=== PATIENT | female | born 1940 | race Asian ===

== ENCOUNTER 2016-09-30 12:51 | Emergency (ER) | payer OTHER ==
[~2016-09-30] VITALS: Ht 172.7 cm; Wt 122.5 kg
[~2016-09-30 12:51] MED LIST: ALLOPURINOL100 MG PO; AMLODIPINE BESY10 MG PO; AMLODIPINE5 M1 PO; ATORVASTATIN CA40 MG PO; Allopurinol PO; Aspirin PO; COLCHICINE0.6 M1 PO; COLCHICINE0.6 M2 PO; FUROSEMIDE40 M1 PO; Ferrous Sulfate PO; Insulin Aspart, Recombinant SUBQ; LORATADINE10 M2 PO; LOSARTAN POTASS50 MG PO; METOPROLOL TART25 MG PO; Metoprolol Tartrate PO; Simvastatin PO; TOPCARE ASPIRIN81 MG PO
[2016-09-30 12:54] VITALS: BP 118/47
--- NOTE | 2016-09-30 12:58 | NUR ---
Patient ambulated to bed 5 with family. RN evaluating patient at bedside.
[2016-09-30] MEDS ORDERED: ALBUTEROL SULFATE/IPRATROPIU 3 ML SOL IH ONE (13:00)
--- NOTE | 2016-09-30 13:01 | NUR ---
Dr. Millan evaluating patient at bedside.
--- NOTE | 2016-09-30 13:05 | NUR ---
PT PRESENTS TO ER W/C/O SOB SINCE LAST NOC. HX ASTHMA, DM, HTN, GOUT; DENIES N/V/D; SKIN IS PINK/WARM/DRY; AAOX4 WITH EVEN AND STEADY GAIT; LUNGS CLEAR BL; HR EVEN AND REGULAR; PT DENIES ANY FEVER, CP OR COUGH AT THIS TIME; PATIENT STATES PAIN OF 0/10 AT THIS TIME; VSS; PATIENT POSITIONED FOR COMFORT; HOB ELEVATED; BEDRAILS UP X2; BED DOWN. ER MD MADE AWARE OF PT STATUS.
[2016-09-30] MEDS ORDERED: SODIUM CHLORIDE FLUSH 10 ML SYR IVF ONE (13:10)
[2016-09-30] MEDS ORDERED: NITROGLYCERIN 2% 1 GM PKT TP ONE (13:10)
[2016-09-30 14:24] VITALS: BP 119/79
--- NOTE | 2016-09-30 14:24 | NUR ---
Patient discharged with v/s stable. Written and verbal after care instructions given and explained. Patient alert, oriented and verbalized understanding of instructions. Wheel Chair Assisted with to car. All questions addressed prior to discharge. ID band removed. Patient advised to follow up with PMD. Rx of PREDNISON, ALBUTEROL AND ATROVENT INHALER given. Patient educated on indication of medication including possible reaction and side effects. Opportunity to ask questions provided and answered.
== END 2016-09-30 14:24 | disposition home or self-care (01) ==
LOC: MED 12:51
DX: J45.901 Unspecified asthma with (acute) exacerbation (principal); I10 Essential (primary) hypertension; I25.2 Old myocardial infarction; E11.9 Type 2 diabetes mellitus without complications; Z79.4 Long term (current) use of insulin; Z79.82 Long term (current) use of aspirin
CPT/HCPCS: 36415; 71010; 80053; 83880; 84484; 85025; 85610; 85730; 93005; 94640; 99285; J7620; Q0092

== ENCOUNTER 2016-11-24 15:19 | Inpatient (IN) | payer OTHER ==
[~2016-11-24] VITALS: Ht 172.7 cm; Wt 119.7 kg
[2016-11-24 15:56] VITALS: BP 128/53
[2016-11-24] MEDS ORDERED: ASPIRIN 325 MG TAB PO ONE (16:05)
--- NOTE | 2016-11-24 16:27 | NUR ---
76/F PRESENT TO ER C/O COUGH SOB WHEEZING X 2 WKS-----ANTERIOR CHEST WALL PAIN WITH COUGHING PT STATES SHE HAS HX----ASTHMA, GOUT, ARTHRITIS, HTN, DM, CT 2012, CAD, STENTS PLACED. PAIN 8/10 ACHING NON-RADIATING UPON COUGHING. ERMD NOTIFIED OF PATIENT STATUS.
--- NOTE | 2016-11-24 16:30 | NUR ---
Patient being evaluated by physician at bedside.
[2016-11-24] MEDS ORDERED: MORPHINE SULFATE 2 MG/ML SYR IVP PRN (17:40)
[2016-11-24] MEDS ORDERED: HYDROcodone/APAP 7.5/325 MG 1 TAB PO PRN (17:40)
[2016-11-24] MEDS ORDERED: DEXTROSE 50% 50 ML SYR IVP PRN (17:40)
[2016-11-24] MEDS ORDERED: ONDANSETRON 4 MG/2 ML VIAL IVP PRN (17:40)
[2016-11-24] MEDS ORDERED: ACETAMINOPHEN 325 MG TAB PO PRN (17:40)
[2016-11-24] MEDS ORDERED: NITROGLYCERIN 0.4 MG TAB SL PRN (17:45)
[2016-11-24] MEDS ORDERED: ALBUTEROL SULFATE/IPRATROPIU 3 ML SOL IH PRN (17:50)
--- NOTE | 2016-11-24 18:18 | NUR ---
Patient will be admitted to care of DR COLLINS. Admited to TELE. Will go to room 110B. Belongings list completed. Report to ABELARDO VERGARA.
--- NOTE | 2016-11-24 18:25 | NUR ---
Patient will be admitted to care of DR. COLLINS. Admited to TELEMETRY. Will go to room 110B. Belongings list completed. Report to ABELARDO VERGARA.
[2016-11-24 18:30] VITALS: BP 154/62
--- NOTE | 2016-11-24 18:30 | NUR ---
RECEIVED PT FROM ER VIA [facility]. PT IS AAOX4 AND AMB TO BED W/O WALKER. PT HAS WALKER AT BEDSIDE. PT DENIES PAIN, SOB, AND CHEST PAIN. PT IS SHOWING NO S/S OF DISTRESS NOTED WITH 2L O2 NC. PT SKIN IS INTACT. PT BP IS 154/62, HR IS 93, RESPIRATIONS 24, TEMPERATURE 97.2. PT IS AWARE SHE NEEDS TO CALL FAMILY TO BRING ALL MEDICATIONS FROM HOME. PT BED IS IN HIGH FOWLERS POSITION, LOWERED, WITH CALL LIGHT WITHIN REACH. PT STATES SHE NEEDS HEAD OF BED UP BC SHE HAS TROUBLE BREATHING IF THE HOB IS TOO LOW.
--- NOTE | 2016-11-24 19:25 | NUR ---
RECEIVED REPORT FROM JAI ZHOU AT BEDSIDE. Admitted from [facility] with chief complaint of DIFFICULTY BREATHING & SHORTNESS OF BREATH. A 76 y/o, Female, Appropriate. ALERT AWAKE ORIENTED X4. INITIAL ASSESSMENT DONE. NO S/S OF RESPIRATORY DISTRESS OR SOB NOTED. ON O2 @ 2L/MIN VIA NASAL CANULA. NO C/O PAIN OR ANY DISCOMFORT AT THIS TIME. SKIN IS INTACT CLEAN DRY AND WARM TO TOUCH. PLAN OF CARE REVIEWED TO PT AND FAMILY AT BEDSIDE AND VERBALIZED UNDERSTANDING. Oriented to call light, bed, phone,television, bathroom, smoking policy, visiting hours, procedures, ID bracelet on. Belongings list checked. CALL LIGHT WITHIN REACH. WILL CONTINUE TO MONITOR.
--- NOTE | 2016-11-24 19:25 | NUR ---
GAVE PT REPORT TO NIGHT NURSE AT BEDSIDE. PT ENDORSED IN STABLE CONDITION.
[2016-11-24] MEDS: NACL 0.9% 1,000 ML IV SCH (19:29)
--- NOTE | 2016-11-24 20:00 | NUR ---
PT REFUSED TO HAVE SCD'S ON DESPITE EXPLAINING THE RISKS AND BENEFITS OF IT. PT STATES THAT IT CAN MAKE HIM UNCOMFORTABLE. PT IS AMBULATORY WITHOUT ASSIST. SCD'S AT BEDSIDE JUST INCASE PT WILL CHANGE HER MIND. WILL CONTINUE TO MONITOR.
[2016-11-24] MEDS: ALBUTEROL SULFATE/IPRATROPIU 3 ML SOL IH SCH (20:01)
[2016-11-24] MEDS: ATORVASTATIN 20 MG TAB PO SCH (20:17)
[2016-11-24] MEDS: DOCUSATE SODIUM 100 MG GELCAP PO SCH (20:17)
[2016-11-24] MEDS: METOPROLOL 25 MG TAB PO SCH (20:18)
[2016-11-24] MEDS ORDERED: NON-FORMULARY ITEM (Atorvastatin Calcium 40 MG) PO SCH (21:00)
[2016-11-24] MEDS: BLOOD GLUCOSE MONITORING 1 DEV DEV FS SCH (21:07)
[2016-11-24] MEDS: INSULIN LISPRO SLIDING SCALE 100 UNITS/ML VIAL SUBQ PRN (21:08)
[2016-11-25] VITALS: BP 123/52
--- NOTE | 2016-11-25 00:30 | NUR ---
PT IS SLEEPING RIGHT NOW BUT EASILY AROUSABLE. NO S/S OF ANY DISCOMFORT AT THIS TIME. ALL NEEDS ARE ATTENDED. CALL LIGHT WITHIN REACH. WILL CONTINUE TO MONITOR.
[2016-11-25 04:00] VITALS: BP 119/51
--- NOTE | 2016-11-25 05:20 | NUR ---
AM CARE RENDERED. BED LINEN CHANGED. INSTRUCTED PT TO REPOSITION. KEPT CLEAN AND DRY. CALL LIGHT WITHIN REACH. WILL CONTINUE TO MONITOR.
[2016-11-25] MEDS: BLOOD GLUCOSE MONITORING 1 DEV DEV FS SCH ×4 (06:36→20:40)
[2016-11-25] MEDS: INSULIN LISPRO SLIDING SCALE 100 UNITS/ML VIAL SUBQ PRN ×3 (06:37→20:42)
[2016-11-25] MEDS: ALBUTEROL SULFATE/IPRATROPIU 3 ML SOL IH SCH ×3 (06:50→19:28)
--- NOTE | 2016-11-25 07:15 | NUR ---
PT HAS NO S/S OF ANY DISCOMFORT. PLAN OF CARE ENDORSED TO ANDREW ZHOU AT BEDSIDE FOR CONTINUITY OF CARE.
--- NOTE | 2016-11-25 07:16 | NUR ---
RECEIVED REPORT FROM CHILD CARE ATTENDANT SCHOOL NURSE AT BEDSIDE. INTRODUCED OURSELVES AND UPDATED THE BOARD. PT IS ALERT AWAKE AND ORIENTED. PT IS ON NC 3L, O2 SAT 98%. PT HAS IV ON R HAND 22 G RUNNING NS 50ML/HR. PT DENIES CHEST PAIN AT THIS TIME. PT STATED AFTER BREATHING TREATMENT HER BREATHING IS BETTER. CALL LIGHT WITHIN REACH. WILL CONTINUE TO MONITOR.
[2016-11-25 08:00] VITALS: BP 142/54
[2016-11-25] MEDS ORDERED: FERROUS SULFATE 325 MG PO SCH (08:00)
--- NOTE | 2016-11-25 08:24 | NUR ---
PATIENT HAS BEEN SCREENED AND CATEGORIZED HIGH NUTRITION RISK. PATIENT WILL BE SEEN WITHIN 1-2 DAYS OF ADMISSION. 11/25/16-11/26/[address]
--- NOTE | 2016-11-25 08:40 | NUR ---
ADMINISTERED MORNING MEDS. PT TOOK AND TOLERATED WELL. WILL CONTINUE TO MONITOR.
[2016-11-25] MEDS: METOPROLOL 25 MG TAB PO SCH ×2 (08:46→20:36)
[2016-11-25] MEDS: FERROUS SULFATE 325 MG TABEC PO SCH ×2 (08:46→17:14)
[2016-11-25] MEDS: PANTOPRAZOLE 40 MG INJ VIAL IVP SCH (08:46)
[2016-11-25] MEDS: ALLOPURINOL 100 MG TAB PO SCH (08:46)
[2016-11-25] MEDS: COLCHICINE 0.6 MG TAB PO SCH (08:47)
[2016-11-25] MEDS: ECOTRIN 81 MG TABEC PO SCH (08:47)
[2016-11-25] MEDS: LORATADINE 10 MG TAB PO SCH (08:47)
[2016-11-25] MEDS: DOCUSATE SODIUM 100 MG GELCAP PO SCH ×2 (08:48→20:36)
[2016-11-25] MEDS: amLODIPine 5 MG TAB PO SCH (08:48)
[2016-11-25] MEDS: LOSARTAN 50 MG TAB PO SCH (08:48)
[2016-11-25] MEDS ORDERED: NON-FORMULARY ITEM (Amlodipine Besylate 1 TAB) PO SCH (09:00)
[2016-11-25] MEDS ORDERED: NON-FORMULARY ITEM (Loratadine 10 MG) PO SCH (09:00)
[2016-11-25] MEDS ORDERED: COLCHICINE 0.3 MG PO SCH (09:00)
[2016-11-25] MEDS ORDERED: FUROSEMIDE 40 MG TAB PO SCH (09:00)
[2016-11-25] MEDS ORDERED: [UNRECOGNIZED DRUG - OTHER] PO SCH (09:00)
--- NOTE | 2016-11-25 10:00 | NUR ---
PT RESTING IN BED. NO COMPLAINTS AT THIS TIME. CALL LIGHT WITHIN REACH. WILL CONTINUE TO MONITOR.
[2016-11-25 12:00] VITALS: BP 137/67
--- NOTE | 2016-11-25 12:18 | NUR ---
ABG DRAWN ON RR WITHOUT INCIDENT AND AT 1230 RESULTS WERE GIVEN TO DR. CAVANAUGH AND PT WAS PLACED BACK ON 2LNC
[2016-11-25] MEDS ORDERED: SODIUM POLYSTYRENE 15 GM/60 ML UDBTL PO SCH (12:33)
[2016-11-25] MEDS ORDERED: PIPER/TAZO 2.25GM/D5W PREMIX 50 ML IV SCH (13:11)
--- NOTE | 2016-11-25 13:15 | NUR ---
DECREASED FIO2 TO 2L SPO2 99
[2016-11-25] MEDS: NACL 0.9% 1,000 ML IV SCH (13:26)
--- NOTE | 2016-11-25 15:01 | NUR ---
11/25/16 RD INITIAL ASSESSMENT COMPLETED PLEASE REFER TO NUTRITION ASSESSMENT UNDER CARE ACTIVITY FOR ESTIMATED NUTRITIONAL NEEDS. RD RECOMMENDATIONS: 1. RECOMMEND ADDING CARDIAC DIET ONTO CCHO 60 GM D/T PT WITH PMH OF CARDIAC DISORDERS AND DX OF CHF. --NOTE PT CURRENT PO INTAKE IS MEETING 100% OF ESTIMATED KCAL AND PROTEIN NEEDS WITH AN AVG PO INTAKE OF 100%. --ADEQUATE 2. RD LEFT DM DIET EDUCATION HANDOUT NEAR PT BEDSIDE, RD WILL FOLLOW UP WITH DIET EDUCATION ON NEXT VISIT. 3. RD WILL F/U 3-5 DAYS; MODERATE RISK. ALTON ALEXANDER, EDMUND
[2016-11-25 16:00] VITALS: BP 128/50
--- NOTE | 2016-11-25 16:50 | NUR ---
FAMILY VISITING AT BEDSIDE. PT IN STABLE CONDITION. CALL LIGHT WITHIN REACH. WILL CONTINUE TO MONITOR.
--- NOTE | 2016-11-25 18:20 | NUR ---
DR. FUENTES EXAMINED PT AND ORDERED ABG STAT. PT IS ON NC 2L O2 SAT 96%, RR 32.
--- NOTE | 2016-11-25 18:55 | NUR ---
PAGED RESIDENT DOCTOR AND DR. GREGORY REGARDING ABG STAT RESULT.
--- NOTE | 2016-11-25 18:57 | NUR ---
SPOKE TO DR. GREGORY REGARDING PT'S STAT ABG RESULTS. GAVE NO NEW ORDER.
--- NOTE | 2016-11-25 19:12 | NUR ---
PAGED RESIDENT DOCTOR REGARDING BIPAP SETTING FiO2.
--- NOTE | 2016-11-25 19:30 | NUR ---
GAVE REPORT TO CHARGE NURSE OF CONSUMER SALES REPRESENTATIVE. PT IN STABLE CONDITION. RT PUT PT ON BIPAP.
[2016-11-25 20:00] VITALS: BP 145/54
--- NOTE | 2016-11-25 20:05 | NUR ---
RECEIVED FROM CHARGE NURSE REPORT OF PT, SLEEPING AT THIS TIME. BIPAP IN PLACE. WAKES UP EASILY WHEN TOUCHED. TELEMETRY MONITORING. CALL LIGHT WITH IN REACH. CARE PLANS FOR THE NIGHT DISCUSSED WITH HER.
[2016-11-25] MEDS: PIPER/TAZO 2.25GM/D5W PREMIX 50 ML IV SCH (20:35)
[2016-11-25] MEDS: methylPREDNISolone SS 125 MG/2 ML VIAL IVP SCH (20:35)
[2016-11-25] MEDS: ATORVASTATIN 20 MG TAB PO SCH (20:36)
--- NOTE | 2016-11-25 21:33 | NUR ---
SLEEPING WITH BIPAP IN PLACE. NO SOB. NO RESTLESSNESS NOTED. CALL LIGHT WITH IN REACH.ABLE TO USE CALL LIGHT FOR HELP. ORIENTED X 4. TELEMETRY MONITORING.
--- NOTE | 2016-11-26 00:13 | NUR ---
SLEEPING AT THIS TIME. CALL LIGHT WITH IN REACH.
[2016-11-26 00:52] VITALS: BP 126/58
--- NOTE | 2016-11-26 03:47 | NUR ---
ON BIPAP AT 32 % FI02. SLEEPING. NO RESTLESSNESS. CALL LIGHT AT BEDSIDE. TELEMETRY MONITORING.
[2016-11-26] MEDS: PIPER/TAZO 2.25GM/D5W PREMIX 50 ML IV SCH ×3 (04:28→20:31)
[2016-11-26] MEDS: methylPREDNISolone SS 125 MG/2 ML VIAL IVP SCH ×2 (04:28→13:50)
[2016-11-26] MEDS: NACL 0.9% 1,000 ML IV SCH (04:38)
[2016-11-26 05:05] VITALS: BP 135/65
--- NOTE | 2016-11-26 05:38 | NUR ---
STILL ON BIPAP AND SLEEPING STILL UP TO THIS TIME. USES CALL LIGHT FOR ANY HELP SHE NEEDS. A/O X 4. ROM X 4. STANDBY ASSIST . NO PAIN COMPLAINT THIS SHIFT.
[2016-11-26] MEDS: BLOOD GLUCOSE MONITORING 1 DEV DEV FS SCH ×4 (06:17→20:31)
[2016-11-26] MEDS: INSULIN LISPRO SLIDING SCALE 100 UNITS/ML VIAL SUBQ PRN ×2 (06:18→14:15)
[2016-11-26] MEDS: ALBUTEROL SULFATE/IPRATROPIU 3 ML SOL IH SCH ×3 (06:52→18:52)
--- NOTE | 2016-11-26 07:23 | NUR ---
RECEIVED PT REPORT FROM CARE TAKER NURSE AT BEDSIDE. INTRODUCED OURSELVES AND UPDATED THE BOARD. PT IS ALERT AWAKE AND ORIENTED. PT STATED SHE IS FEELING MUCH BETTER THAN YESTERDAY. PT IS ON NC 3L O2 SAT 95%. PT HAS IV ON R HAND 22G RUNNING NS@50ML/HR. CALL LIGHT WITHIN REACH. WILL CONTINUE TO MONITOR.
[2016-11-26 08:00] VITALS: BP 137/59
[2016-11-26] MEDS: PANTOPRAZOLE 40 MG INJ VIAL IVP SCH (08:33)
[2016-11-26] MEDS: FERROUS SULFATE 325 MG TABEC PO SCH ×2 (08:34→17:11)
[2016-11-26] MEDS: ECOTRIN 81 MG TABEC PO SCH (08:34)
[2016-11-26] MEDS: DOCUSATE SODIUM 100 MG GELCAP PO SCH ×2 (08:34→20:32)
[2016-11-26] MEDS: LOSARTAN 50 MG TAB PO SCH (08:34)
[2016-11-26] MEDS: LORATADINE 10 MG TAB PO SCH (08:34)
[2016-11-26] MEDS: METOPROLOL 25 MG TAB PO SCH ×2 (08:35→20:31)
[2016-11-26] MEDS: amLODIPine 5 MG TAB PO SCH (08:35)
[2016-11-26] MEDS: FUROSEMIDE 40 MG/4 ML VIAL IVP SCH (08:35)
[2016-11-26] MEDS: COLCHICINE 0.6 MG TAB PO SCH (08:35)
[2016-11-26] MEDS: ALLOPURINOL 100 MG TAB PO SCH (08:36)
--- NOTE | 2016-11-26 11:05 | NUR ---
ABG DRAWN ON RR WITHOUT INCIDENT AND AT 1115 ABG RESULTS GIVEN TO DR. CAVANAUGH WITH NO CHANGES MADE
[2016-11-26 12:00] VITALS: BP 141/51
--- NOTE | 2016-11-26 13:30 | NUR ---
LAB CALLED REGARDING CRITICAL RESULT OF BS, BUN AND CREATININE. WILL REPORT TO
--- NOTE | 2016-11-26 13:32 | NUR ---
SPOKE TO REGARDING PT'S CRITICAL VALUE. WANTED NURSE TO ASK PT WHAT HOME MEDS SHE TAKES FOR DM. WILL ASK.
--- NOTE | 2016-11-26 13:34 | NUR ---
REPORTED TO DR HERRMANN'S HOME MEDS.
[2016-11-26] MEDS ORDERED: INSULIN HUMAN REGULAR 100 UNITS/ML 10 ML VIAL SUBQ SCH (15:30)
[2016-11-26] MEDS ORDERED: INSULIN LISPRO 100 UNITS/ML VIAL SUBQ SCH (15:35)
--- NOTE | 2016-11-26 15:45 | NUR ---
ADMINISTERED HUMALOG INSULIN 10 UNITS ORDERED BY FOR BS OF 521. PT TOLERATED WELL. WILL RECHECK BS.
[2016-11-26 16:00] VITALS: BP 136/56
[2016-11-26] MEDS ORDERED: INSULIN HUMAN NPH 100 UNITS/ML VIAL SUBQ SCH ×3 (16:00→21:00)
--- NOTE | 2016-11-26 16:06 | NUR ---
NOVOLIN N 10 UNITS ADMINISTERED FOR BS 519 ORDERED. PT TOLERATED WELL. WILL RECHECK BS.
[2016-11-26] MEDS: CALCIUM ACETATE 667 MG TAB PO SCH (17:10)
--- NOTE | 2016-11-26 17:10 | NUR ---
NOVOLIN N 10 UNITS ADMINISTERED FOR BS 470 ORDERED.
--- NOTE | 2016-11-26 17:48 | NUR ---
RECHECK BS, IT WAS 458. REPORTED TO
--- NOTE | 2016-11-26 18:00 | NUR ---
PT SAT ON EDGE OF BED AND ATE DINNER. TOLERATED WELL. VS STABLE. WILL CONTINUE TO MONITOR.
--- NOTE | 2016-11-26 18:30 | NUR ---
PT STATED GLASSES ARE MISSING. CHECKED IN BETWEEN SHEETS, UNDER THE BED, IN THE TRASH CAN, ALL OVER ROOM, AND HER DINNER TRAY IN KITCHEN. NOT FOUND.
--- NOTE | 2016-11-26 19:23 | NUR ---
ENDORSED PT TO THE PRODUCTION MANUFACTURING WORKER NURSE AT BEDSIDE FOR CONTINUITY OF CARE. PT IS IN STABLE CONDITION.
--- NOTE | 2016-11-26 19:24 | NUR ---
RECEIVED REPORT FROM DAY SHIFT NURSE. PT IS AAOX4, TELE MONITOR, DENIES PAIN. HAS NO S/S OF RESPIRATORY DISTRESS/DISCOMFORT NOTED. IV SITE IS PATENT AND INTACT. SKIN IS INTACT. PLAN OF CARE DISCUSSED, VERBALIZED UNDERSTANDING. SAFETY MEASURES CHECKED, CALL LIGHT WITHIN REACH. WILL CONTINUE TO MONITOR.
[2016-11-26 20:00] VITALS: BP 126/54
[2016-11-26] MEDS: ATORVASTATIN 20 MG TAB PO SCH (20:32)
--- NOTE | 2016-11-26 20:35 | NUR ---
DUE MEDS GIVEN, PROVIDED DRUG INFO EXPLANATION, BENEFITS AND S/E, VERBALIZED UNDERSTANDING. PT TOLERATED MEDS WELL. BSL CHECKED, BSL= 423, WILL NOTIFY
--- NOTE | 2016-11-26 20:55 | NUR ---
PAGED MD TO REPORT BLOOD SUGAR LEVEL. WAITING FOR CALL BACK.
--- NOTE | 2016-11-26 20:58 | NUR ---
SPOKE DR SAM VIA PHONE, REPORTED BSL OF 423, MD STATED THAT OK NOT TO GIVE HUMALOG COVERAGE DUE TO NOVOLIN WAS GIVEN AT DAY SHIFT. WILL CONTINUE TO MONITOR.
[2016-11-26] MEDS ORDERED: INSULIN NPH HUM/REG INSULIN HM 100 UNIT/ML 10 ML VIAL SQ SCH (21:00)
[2016-11-27] VITALS: BP 111/45
--- NOTE | 2016-11-27 | NUR ---
V/S CHECKED AND STABLE. PT ON BIPAP HAS NO S/S OF RESPIRATORY DISTRESS/DISCOMFORT NOTED. WILL CONTINUE TO MONITOR.
--- NOTE | 2016-11-27 00:05 | NUR ---
PT IN BIPAP, CONNECT CONTINUE PULSE OX. PT IS LINDA. WELL BIPAP.
[2016-11-27] MEDS: NACL 0.9% 1,000 ML IV SCH ×2 (00:52→08:03)
--- NOTE | 2016-11-27 02:43 | NUR ---
PT ON BIPAP, EYES CLOSED, BREATHING EVEN AND UNLABORED, RESTING QUIETLY, HAS NO S/S OF RESPIRATORY DISTRESS/DISCOMFORT.
[2016-11-27 04:00] VITALS: BP 102/40
--- NOTE | 2016-11-27 04:00 | NUR ---
V/S CHECKED AND STABLE, DENIES PAIN. PT ON BIPAP. NO S/S OF RESPIRATORY DISTRESS/DISCOMFORT NOTED.
[2016-11-27] MEDS: PIPER/TAZO 2.25GM/D5W PREMIX 50 ML IV SCH ×2 (04:58→12:36)
[2016-11-27] MEDS: INSULIN LISPRO SLIDING SCALE 100 UNITS/ML VIAL SUBQ PRN ×2 (05:39→11:27)
--- NOTE | 2016-11-27 06:15 | NUR ---
PT AMBULATED TO THE RESTROOM, NO DISTRESS NOTED. REMINDED TO USE CALL LIGHT, VERBALIZED UNDERSTANDING.
[2016-11-27] MEDS ORDERED: INSULIN HUMAN NPH 100 UNITS/ML VIAL SUBQ SCH (06:30)
[2016-11-27] MEDS ORDERED: INSULIN NPH HUM/REG INSULIN HM 100 UNIT/ML 10 ML VIAL SQ SCH (06:30)
--- NOTE | 2016-11-27 06:50 | NUR ---
ACCIDENTALLY PULLED HER IV, CANNULA INTACT, SECURED WITH TAPE. WILL INSERT A NEW IV.
[2016-11-27] MEDS: BLOOD GLUCOSE MONITORING 1 DEV DEV FS SCH ×2 (06:52→11:24)
[2016-11-27] MEDS: ALBUTEROL SULFATE/IPRATROPIU 3 ML SOL IH SCH ×2 (07:10→13:32)
--- NOTE | 2016-11-27 07:19 | NUR ---
RECEIVED CALL FROM LAB BUN 70 AND TRENDING UP.
--- NOTE | 2016-11-27 07:20 | NUR ---
ENDORSED TO DAY SHIFT NURSE. PT IN STABLE CONDITION.
--- NOTE | 2016-11-27 07:21 | NUR ---
PT AWAKE AND ALERT, NO SIGNS OF ACUTE DISTRESS, BREATHING EVEN AND UNLABORED BILATERALLY, TELE MONITOR IN PLACE, BOWEL SOUNDS ACTIVE IN ALL 4 QUADRANTS, SKIN INTACT, AMBULATORY WITH BRP, CONTINENT TO BOWEL AND BLADDER, PT DENIES PAIN AT THIS TIME, NO IV ACCESS AT THIS TIME IV WAS PULLED OUT ON ACCIDENT BY PATIENT, BED IN LOW POSITION WITH BILATERAL HALF SIDE RAILS UP, CALL LIGHT WITHIN REACH. ORIENTED TO UNIT AND HOSPITAL, PT VERBALIZED UNDERSTANDING.
--- NOTE | 2016-11-27 07:22 | NUR ---
DECREASED N\C TO 2 L SPO2 98 Addendum: 11/27/16 at 0723 by Elsie Rogers RT O2 EXT. IN PLACE
--- NOTE | 2016-11-27 07:35 | NUR ---
REPORTED BUN [address] COLLINS, NO NEW ORDERS AT THIS TIME.
[2016-11-27 08:00] VITALS: BP 146/64
[2016-11-27] MEDS: COLCHICINE 0.6 MG TAB PO SCH (09:00)
[2016-11-27] MEDS: METOPROLOL 25 MG TAB PO SCH (09:34)
[2016-11-27] MEDS: FERROUS SULFATE 325 MG TABEC PO SCH (09:35)
[2016-11-27] MEDS: amLODIPine 5 MG TAB PO SCH (09:35)
[2016-11-27] MEDS: DOCUSATE SODIUM 100 MG GELCAP PO SCH (09:35)
[2016-11-27] MEDS: CALCIUM ACETATE 667 MG TAB PO SCH (09:35)
[2016-11-27] MEDS: ECOTRIN 81 MG TABEC PO SCH (09:35)
[2016-11-27] MEDS: ALLOPURINOL 100 MG TAB PO SCH (09:35)
[2016-11-27] MEDS: LORATADINE 10 MG TAB PO SCH (09:36)
[2016-11-27] MEDS: LOSARTAN 50 MG TAB PO SCH (09:36)
[2016-11-27] MEDS: PANTOPRAZOLE 40 MG INJ VIAL IVP SCH (09:58)
[2016-11-27] MEDS: FUROSEMIDE 40 MG/4 ML VIAL IVP SCH (09:59)
[2016-11-27 12:00] VITALS: BP 136/59
[2016-11-27] MEDS ORDERED: LEVAQUIN750 MG PO (14:44)
[2016-11-27] MEDS ORDERED: CLEOCIN HCL300 MG PO (14:44)
[2016-11-27] MEDS ORDERED: BD LACTINEX1.4 MG PO (14:44)
--- NOTE | 2016-11-27 15:10 | NUR ---
RECEIVED NEW ORDER FOR DISCHARGE FROM DR WARREN, NOTED AND WILL CARRY OUT.
--- NOTE | 2016-11-27 15:51 | NUR ---
PT AWAKE AND ALERT, NO SIGNS OF ACUTE DISTRESS. EDUCATED PATIENT ON SIGNS AND SYMPTOMS OF INFECTIONS AND WORSENING CONDITION. TOOK OFF TELE MONITOR AND CUT OFF WRIST BANDS. INFORMED PATIENT TO FOLLOW UP WITH PCP AND EDUCATED PATIENT ON NEW PRESCRIPTIONS AND CONTINUATION OF OLD MEDICATIONS. PT VERBALIZED UNDERSTANDING. PATIENT LEFT HOSPITAL VIA WHEELCHAIR TO GO HOME VIA PRIVATE AUTO WITH FAMILY MEMBER.
== END 2016-11-27 13:51 | disposition home or self-care (01) | DRG 177 ==
LOC: MED 15:19 → MTU 17:44
PROVIDERS: ADMIT Family Medicine; ATTEND Family Medicine
PROC: 5A09357 Assistance with Respiratory Ventilation, Less than 24 Consecutive Hours, Continuous Positive Airway Pressure (ICD-10-PCS; principal; 2016-11-25)
DX: J69.0 Pneumonitis due to inhalation of food and vomit (principal); N17.0 Acute kidney failure with tubular necrosis; N18.6 End stage renal disease; J96.02 Acute respiratory failure with hypercapnia; J96.01 Acute respiratory failure with hypoxia; I42.0 Dilated cardiomyopathy; Z68.41 Body mass index [BMI] 40.0-44.9, adult; E87.2 Acidosis; I13.2 Hypertensive heart and chronic kidney disease with heart failure and with stage 5 chronic kidney disease, or end stage renal disease; E11.65 Type 2 diabetes mellitus with hyperglycemia; M10.9 Gout, unspecified; M19.90 Unspecified osteoarthritis, unspecified site; E11.51 Type 2 diabetes mellitus with diabetic peripheral angiopathy without gangrene; I70.209 Unspecified atherosclerosis of native arteries of extremities, unspecified extremity; E66.01 Morbid (severe) obesity due to excess calories; D64.9 Anemia, unspecified; I50.9 Heart failure, unspecified; E87.5 Hyperkalemia; E11.22 Type 2 diabetes mellitus with diabetic chronic kidney disease; E78.5 Hyperlipidemia, unspecified; G47.33 Obstructive sleep apnea (adult) (pediatric); I25.10 Atherosclerotic heart disease of native coronary artery without angina pectoris; Z95.5 Presence of coronary angioplasty implant and graft; I25.2 Old myocardial infarction; Z79.82 Long term (current) use of aspirin; Z79.899 Other long term (current) drug therapy; Z79.4 Long term (current) use of insulin; Z71.3 Dietary counseling and surveillance; Z87.891 Personal history of nicotine dependence; Z83.3 Family history of diabetes mellitus; Z82.3 Family history of stroke; Z82.49 Family history of ischemic heart disease and other diseases of the circulatory system

== ENCOUNTER 2017-01-19 01:20 | Emergency (ER) | payer OTHER ==
[~2017-01-19] VITALS: Ht 172.7 cm; Wt 121.6 kg
[~2017-01-19 01:20] MED LIST changes: -ALLOPURINOL100 MG PO; +AMLO10TA2 PO; -AMLODIPINE BESY10 MG PO; -AMLODIPINE5 M1 PO; +ASPI-1081 PO; +ATOR40TA40 PO; -ATORVASTATIN CA40 MG PO; -Aspirin PO; +CLIN300C2 PO; +COLC0.6T46 PO; -COLCHICINE0.6 M1 PO; -COLCHICINE0.6 M2 PO; +FURO40TA9 PO; -FUROSEMIDE40 M1 PO; +LACT1.4C PO; +LEVO750T2 PO; +LORA10OD44 PO; -LORATADINE10 M2 PO; +LOSA50TA39 PO; -LOSARTAN POTASS50 MG PO; +METO25TA PO; -METOPROLOL TART25 MG PO; -Metoprolol Tartrate PO; -Simvastatin PO; -TOPCARE ASPIRIN81 MG PO
[2017-01-19 01:24] VITALS: BP 122/51
--- NOTE | 2017-01-19 05:45 | NUR ---
PT TAKEN TO BED 4
--- NOTE | 2017-01-19 05:51 | NUR ---
PATIENT PRESENTS TO ED WITH C/O SOB . PT DENIES N/V/D; SKIN IS PINK/WARM/DRY; AAOX4 WITH EVEN AND STEADY GAIT; LUNGS CLEAR BL; HR EVEN AND REGULAR; PT DENIES ANY FEVER, CP AT THIS TIME; PATIENT STATES PAIN OF 0/10 AT THIS TIME; VSS; PATIENT POSITIONED FOR COMFORT; HOB ELEVATED; BEDRAILS UP X2; BED DOWN. ER MD MADE AWARE OF PT STATUS.
--- NOTE | 2017-01-19 07:10 | NUR ---
PT RESTING WITH OU CLOSED, NO GRIMACE NO MOAN--NO S/S RESP DISTRESS AT THIS TIME CURRENTLY ON 2L NC, V/S/S--X2 SR UP JOSEE TRUJILLO AND LOCKED CONTINUES TO WAIT FOR MD LEYVA
--- NOTE | 2017-01-19 07:16 | NUR ---
REPORT GIVEN TO LISET RN
--- NOTE | 2017-01-19 07:19 | NUR ---
IN ROOM SPEAKING WITH PT
--- NOTE | 2017-01-19 07:25 | NUR ---
PT ON ROOM AIR---AWAKE ALERT SITTING EDGE OF JOSEE, AWAITING DC INSTRUCTIONS
[2017-01-19 08:17] VITALS: BP 142/63
== END 2017-01-19 08:16 | disposition home or self-care (01) ==
LOC: MED 01:20
DX: J45.901 Unspecified asthma with (acute) exacerbation (principal); I25.2 Old myocardial infarction; I10 Essential (primary) hypertension; E11.9 Type 2 diabetes mellitus without complications
CPT/HCPCS: 81002; 99283